=== PATIENT | female | born 1955 | race Caucasian/White ===

== ENCOUNTER 2016-10-28 17:55 | Inpatient (IN) | payer MEDICARE, OTHER ==
[~2016-10-28] VITALS: Ht 167.6 cm; Wt 98.8 kg
[~2016-10-28 17:55] MED LIST: AMLO10TA2 PO; ATOR20TA15 PO; BUME2TAB PO; CANA100T PO; CLON.1 PO; CLON1TAB PO; GLIP5TAB8 PO; LISI40TA PO; Spironolactone PO
[2016-10-28 18:30] VITALS: BP 125/66; PULSE 80; RESP 16; TEMP 97.5; O2SAT 96
--- NOTE | 2016-10-28 18:36 | PD ---
HPI Chief Complaint: General Weakness Time Seen by Provider: 18:13 Travel History International Travel<30 days: No Contact w/Intl Traveler<30days: No Traveled to known affect area: No History of Present Illness HPI This 60-year-old female says she had a stroke 5 weeks ago. Tonight she was incontinent of stool. She she had a fall last . He was incontinent last week also. When she had her stroke was her left side was affected. She had a 2x3 centimeter hemorrhagic infarct at the right basal ganglia. Was thought to be secondary to hypertension. She does have a history of diabetes. She said she's been feeling very weak at home. She walks with a walker. This was her second stroke that she had 5 weeks ago. Daughter says that a week ago she fell and was on the floor for some time until we were able to break into the department. She refused to go to the hospital this time. Daughter says she has not been eating well and she is having generalized weakness PFSH Past Medical History Bipolar Disorder: Yes Anxiety: Yes Depression: Yes Cancer: No Cardiovascular Problems: Yes (HTN) High Cholesterol: Yes Diabetes: Yes Diminished Hearing: No Genitourinary: Yes Hypertension: Yes Immune Disorder: No Musculoskeletal: Yes Neurologic: Yes Psychiatric: Yes Reproductive: No Respiratory: No Renal Failure: Yes Past Surgical History Appendectomy: Yes Cholecystectomy: Yes Hysterectomy: Yes Social History Alcohol Use: No Tobacco Use: No Substance Use: No Allergies-Medications (Allergen,Severity, Reaction): Coded Allergies: Latex (Verified Allergy, Unknown, RASH, 10/28/16) Reported Meds & Prescriptions Reported Meds & Active Scripts Active Reported Clonidine 168 HR Patch (Clonidine HCl) 0.2 Mg/24 Hr Patch 1 Patch T-DERMAL Q7D Spironolactone 25 Mg Tab 12.5 Mg PO DAILY PRN Metformin ER (Metformin HCl) 1,000 Mg Almaz 1,000 Mg PO DAILY With evening meal Amlodipine (Amlodipine Besylate) 10 Mg Tab 10 Mg PO DAILY Glipizide 5 Mg Tab 5 Mg PO BID Take 30 minutes before a meal Clonazepam 1 Mg Tab 1 Mg PO TID Lisinopril 40 Mg Tab 40 Mg PO HS Bumetanide 2 Mg Tab 1 Mg PO DAILY Atorvastatin (Atorvastatin Calcium) 20 Mg Tab 20 Mg PO HS Review of Systems General / Constitutional: No: Fever, Chills Eyes: No: Diploplia HENT: No: Headaches Cardiovascular: No: Chest Pain or Discomfort, Palpitations Respiratory: No: Cough, Shortness of Breath Gastrointestinal: Positive: Loss of Appetite, No: Nausea, Vomiting Genitourinary: No: Urgency, Frequency Musculoskeletal: No: Myalgias, Arthralgias Neurologic: No: Weakness Endocrine: No: Heat Intolerance, Cold Intolerance Hematologic/Lymphatic: No: Easy Bruising Physical Exam Narrative GENERAL: Well-developed female SKIN: Warm and dry. She does have an erythematous excoriated rash between her legs and under her breasts. HEAD: Atraumatic. Normocephalic. EYES: Pupils equal and round. No scleral icterus. No injection or drainage. ENT: No nasal bleeding or discharge. Mucous membranes pink and moist. NECK: Trachea midline. No JVD. CARDIOVASCULAR: Regular rate and rhythm. No murmur appreciated. RESPIRATORY: No accessory muscle use. Clear to auscultation. Breath sounds equal bilaterally. GASTROINTESTINAL: Abdomen soft, non-tender, nondistended. Hepatic and splenic margins not palpable. MUSCULOSKELETAL: No obvious deformities. No clubbing. No cyanosis. No edema. NEUROLOGICAL: Awake and alert. No obvious cranial nerve deficits. She does have 4 over 5 weakness of the left arm and left leg. Clear PSYCHIATRIC: Appropriate mood and affect; insight and judgment normal. Data Data Last Documented VS Vital Signs Date Time Temp Pulse Resp B/P Pulse Ox O2 Delivery O2 Flow Rate FiO2 10/28/16 18:55 78 16 96 Room Air 10/28/16 18:30 97.5 125/66 Orders Complete Blood Count With Diff (10/28/16 18:13) Basic Metabolic Panel (Bmp) (10/28/16 18:13) Urinalysis - C+S If Indicated (10/28/16 18:13) Ct Brain W/O Iv Contrast(Rout) (10/28/16 18:51) Sodium Chlor 0.9% 1000 Ml Inj (Ns 1000 M (10/28/16 20:00) Labs Laboratory Tests Test 10/28/16 18:45 White Blood Count 16.7 TH/MM3 Red Blood Count 4.37 MIL/MM3 Hemoglobin 12.5 GM/DL Hematocrit 37.4 % Mean Corpuscular Volume 85.6 FL Mean Corpuscular Hemoglobin 28.5 PG Mean Corpuscular Hemoglobin 33.3 % Concent Red Cell Distribution Width 13.1 % Platelet Count 355 TH/MM3 Mean Platelet Volume 9.3 FL Neutrophils (%) (Auto) 84.2 % Lymphocytes (%) (Auto) 6.9 % Monocytes (%) (Auto) 5.6 % Eosinophils (%) (Auto) 0.1 % Basophils (%) (Auto) 3.2 % Neutrophils # (Auto) 14.1 TH/MM3 Lymphocytes # (Auto) 1.2 TH/MM3 Monocytes # (Auto) 0.9 TH/MM3 Eosinophils # (Auto) 0.0 TH/MM3 Basophils # (Auto) 0.5 TH/MM3 CBC Comment AUTO DIFF Differential Comment AUTO DIFF CONFIRMED Sodium Level 137 MEQ/L Potassium Level 4.8 MEQ/L Chloride Level 104 MEQ/L Carbon Dioxide Level 19.4 MEQ/L Anion Gap 14 MEQ/L Blood Urea Nitrogen 58 MG/DL Creatinine 3.40 MG/DL Estimat Glomerular Filtration 14 ML/MIN Rate Random Glucose 93 MG/DL Calcium Level 9.4 MG/DL MDM Medical Decision Making Medical Screen Exam Complete: Yes Emergency Medical Condition: Yes Medical Record Reviewed: Yes Differential Diagnosis Differential includes deconditioning, electrolyte imbalance, dehydration Narrative Course CT scan shows previously noted right basal ganglia infarct, otherwise negative. Of note her BUNs 58 with creatinine of 3.4. Her baseline creatinine is about 1.5. Depression in his dehydration, acute kidney injury. Diagnosis Primary Impression: Dehydration Additional Impression: Acute kidney injury Sunny Ochoa MD Oct 28, 2016 18:36
[2016-10-28] MEDS ORDERED: SPIR25TA PO (18:58)
[2016-10-28] MEDS ORDERED: METF-382 PO (18:58)
[2016-10-28] MEDS ORDERED: CLON0.2D T-DERMAL (19:00)
[2016-10-28 19:15] LABS: AUTOMATED NEUTROPHIL # 14.1 TH/MM3 (1.8-7.7); BASOPHIL # 0.5 TH/MM3 (0-0.2); BASOPHIL % 3.2 % (0.0-2.0); EOSINOPHIL % 0.1 % (0.0-4.0); HEMATOCRIT 37.4 % (35.0-46.0); LYMPH % 6.9 % (9.0-44.0); LYMPHOCYTE # 1.2 TH/MM3 (1.0-4.8); MEAN CELL VOLUME 85.6 FL (80.0-100.0); MEAN CORPUSCULAR HEMOGLOBIN 28.5 PG (27.0-34.0); MEAN CORPUSCULAR HGB CONC 33.3 % (32.0-36.0); MONO % 5.6 % (0.0-8.0); NEUT % 84.2 % (16.0-70.0); PLATELET COUNT 355 TH/MM3 (150-450); RED BLOOD COUNT 4.37 MIL/MM3 (4.00-5.30); RED CELL DISTRIBUTION WIDTH 13.1 % (11.6-17.2); WHITE BLOOD COUNT 16.7 TH/MM3 (4.0-11.0)
[2016-10-28 19:24] LABS: POTASSIUM 4.8 MEQ/L (3.5-5.1)
[2016-10-28 19:25] LABS: HEMO FLAGS AUTO DIFF
[2016-10-28 19:27] LABS: BICARBONATE 19.4 MEQ/L (21.0-32.0)
--- NOTE | 2016-10-28 19:41 | RADHPO ---
EXAM DATE/TIME: 10/28/2016 19:22 [facility] COMPARISON: CT BRAIN W/O CONTRAST, July 31, 2016, 8:48. MRA BRAIN W/O CONTRAST, July 29, 2016, 12:26. M RI BRAIN W/O CONTRAST, July 29, 2016, 12:26. INDICATIONS : Weakness. RADIATION DOSE: 66.48 CTDIvol (mGy) MEDICAL HISTORY : Cerebrovascular disease. Cardiovascular disease SURGICAL HISTORY : None. ENCOUNTER: Initial ACUITY: 1 day PAIN SCALE: 2/10 LOCATION: cranial TECHNIQUE: Multiple contiguous axial images were obtained of the head. Using automated exposure control and adj ustment of the mA and/or kV according to patient size, radiation dose was kept as low as reasonably a chievable to obtain optimal diagnostic quality images. FINDINGS: CEREBRUM: The ventricles are normal for age. No evidence of midline shift, mass lesion, hemorrhage or acute in farction. No extra-axial fluid collections are seen. The basal ganglia infarct on the right has evol clint to chronic. POSTERIOR FOSSA: The cerebellum and brainstem are intact. The 4th ventricle is midline. The cerebellopontine angle i s unremarkable. EXTRACRANIAL: The visualized portion of the orbits is intact. SKULL: The calvaria is intact. No evidence of skull fracture. CONCLUSION: No acute intracranial abnormality. Old infarct right basal ganglia. Holden Vargas MD on October 28, 2016 at 19:39 Board Certified Radiologist. This report was verified electronically.
[2016-10-28 19:51] LABS: SCAN/DIFF AUTO DIFF CONFIRMED
[2016-10-28] MEDS ORDERED: SODIUM CHLOR 0.9% 1000 ML INJ 1,000 ML IV SCH (20:00)
[2016-10-28 20:50] VITALS: BP 123/85; PULSE 81; RESP 16; O2SAT 95
[2016-10-28] MEDS: SODIUM CHLORIDE 0.9% FLUSH 5 ML FLUSH FLUSH SCH (21:00)
[2016-10-28] MEDS ORDERED: NALOXONE HCL 0.4 MG/ML AMP IV PRN (21:00)
[2016-10-28] MEDS ORDERED: SODIUM CHLORIDE 0.9% FLUSH 5 ML FLUSH FLUSH PRN (21:00)
[2016-10-28] MEDS: SODIUM CHLOR 0.9% 1000 ML INJ 1,000 ML IV SCH (21:26)
--- NOTE | 2016-10-28 21:39 | RADHPO ---
EXAM DATE/TIME: 10/28/2016 21:28 [facility] COMPARISON: CHEST SINGLE AP, July 28, 2016, 22:54. INDICATIONS : Weakness. MEDICAL HISTORY : Cerebrovascular disease. Cardiovascular disease. SURGICAL HISTORY : None. ENCOUNTER: Initial ACUITY: 1 day PAIN SCORE: 0/10 LOCATION: Bilateral chest FINDINGS: A single view of the chest demonstrates the lungs to be symmetrically aerated without evidence of mas s, infiltrate or effusion. The cardiomediastinal contours are unremarkable. Osseous structures are intact. CONCLUSION: No evidence of acute cardiopulmonary disease. Holden Vargas MD on October 28, 2016 at 21:38 Board Certified Radiologist. This report was verified electronically.
[2016-10-28 22:00] VITALS: BP 104/58; PULSE 83; RESP 16; O2SAT 98
[2016-10-28 23:44] VITALS: PULSE 83
[2016-10-29] VITALS (7 sets, daily range): BP systolic 108–147; BP diastolic 68–78; PULSE 68–83; RESP 16–20; TEMP 97.5–98.7; O2SAT 95–100
[2016-10-29] MEDS: SODIUM CHLOR 0.9% 1000 ML INJ 1,000 ML IV SCH ×2 (06:27→16:30)
[2016-10-29 06:57] LABS: POTASSIUM 4.1 MEQ/L (3.5-5.1)
[2016-10-29 07:00] LABS: AUTOMATED NEUTROPHIL # 7.8 TH/MM3 (1.8-7.7); BASOPHIL % 0.4 % (0.0-2.0); EOSINOPHIL # 0.1 TH/MM3 (0-0.4); EOSINOPHIL % 0.8 % (0.0-4.0); HEMATOCRIT 30.9 % (35.0-46.0); LYMPH % 20.2 % (9.0-44.0); LYMPHOCYTE # 2.2 TH/MM3 (1.0-4.8); MEAN CELL VOLUME 85.4 FL (80.0-100.0); MEAN CORPUSCULAR HEMOGLOBIN 29.2 PG (27.0-34.0); MEAN CORPUSCULAR HGB CONC 34.2 % (32.0-36.0); MONO % 8.1 % (0.0-8.0); NEUT % 70.5 % (16.0-70.0); PLATELET COUNT 305 TH/MM3 (150-450); RED BLOOD COUNT 3.61 MIL/MM3 (4.00-5.30); RED CELL DISTRIBUTION WIDTH 13.4 % (11.6-17.2); WHITE BLOOD COUNT 10.9 TH/MM3 (4.0-11.0)
[2016-10-29 07:02] LABS: HEMO FLAGS DIFF FINAL
[2016-10-29 08:05] LABS: BICARBONATE 18.2 MEQ/L (21.0-32.0)
[2016-10-29] MEDS ORDERED: GLUCAGON 1 MG/ML VIAL OTHER PRN (09:15)
[2016-10-29] MEDS ORDERED: DEXTROSE 50% IN WATER 50 ML VIAL(D50) IV PUSH PRN (09:15)
--- NOTE | 2016-10-29 09:20 | HHI.HP ---
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 She has had 2 episodes of stool incontinence, one last night and one a week ago, due to inability to make it to the bathroom on time. She's been home approximately 5 weeks following a 2 month stay in rehabilitation subsequent to her hemorrhagic CVA in July. 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 She lives alone and attributes her recurrent falls due to being disoriented and unable to see her home. She states she's had worsening memory problems over the past several weeks as well as progressive weakness. She no longer feels that she is safe at home alone. Daughter also reports in the ED that the patient has not been eating well. In the ED, CT scan showed previously noted right basal ganglia infarct otherwise negative. She is known to have a history of chronic kidney disease with a baseline creatinine of 1.5 but at the time of her presentation, her creatinine was 3.4 and BUN was 58. Review of Systems Constitutional: DENIES: Diaphoretic episodes, Fever, Chills, Dizziness Endocrine: DENIES: Polydipsia, Polyuria Eyes: DENIES: Blurred vision, Diplopia, Double Vision Ears, nose, mouth, throat: DENIES: Nasal discharge, Throat pain, Running Nose Respiratory: DENIES: Cough, Sputum production, Shortness of breath Cardiovascular: DENIES: Chest pain, Palpitations, Syncope, Dyspnea on Exertion , Lower Extremity Edema Gastrointestinal: DENIES: Abdominal pain, Bloody stools, Constipation, Diarrhea , Nausea, Vomiting Genitourinary: DENIES: Urinary incontinence, Hematuria, Dysuria Musculoskeletal: DENIES: Joint pain, Muscle aches, Back pain Integumentary: DENIES: Pruritus, Rash Hematologic/lymphatic: DENIES: Lymphadenopathy Immunologic/allergic: DENIES: Urticaria Neurologic: COMPLAINS OF: Poor Balance, DENIES: Headache, Paresthesias, Seizures Psychiatric: COMPLAINS OF: Anxiety, Depression, DENIES: Confusion, Mood changes Past Family Social History Past Medical History Hypertension Recurrent CVA with residual left-sided weakness, history of 3 x 2 cm hemorrhagic CVA 08/09 Diabetes mellitus Bipolar disorder Depression Anxiety dyslipidemia Blind Past Surgical History Appendectomy Hysterectomy Cholecystectomy Reported Medications Clonidine 168 HR Patch (Clonidine HCl) 0.2 Mg/24 Hr Patch 1 Patch T-DERMAL Q7D Spironolactone 25 Mg Tab 12.5 Mg PO DAILY PRN Metformin ER (Metformin HCl) 1,000 Mg Almaz 1,000 Mg PO DAILY With evening meal Amlodipine (Amlodipine Besylate) 10 Mg Tab 10 Mg PO DAILY Glipizide 5 Mg Tab 5 Mg PO BID Take 30 minutes before a meal Clonazepam 1 Mg Tab 1 Mg PO TID Lisinopril 40 Mg Tab 40 Mg PO HS Bumetanide 2 Mg Tab 1 Mg PO DAILY Atorvastatin (Atorvastatin Calcium) 20 Mg Tab 20 Mg PO HS Allergies: Coded Allergies: Latex (Verified Allergy, Unknown, RASH, 10/28/16) Active Ordered Medications Current Medications Medications (Trade) Dose Ordered Sig/Eugenie Route Start Time Stop Time Status Last Admin (NS 1000 ml Inj) 1,000 ml @ 100 mls/hr Q10H IV 10/28/16 20:54 10/29/16 06:27 (NS Flush) 2 ml UNSCH PRN FLUSH 10/28/16 21:00 (NS Flush) 2 ml BID FLUSH 10/28/16 21:00 (Narcan Inj) 0.4 mg UNSCH PRN IV 10/28/16 21:00 (Pneumovax-23 Inj) 25 mcg ONCE ONCE IM 10/29/16 10:00 10/29/16 10:01 Family History Significant for mother with a history of heart disease Social History Patient has a history of tobacco use since high school, she previously smoked 1 pack per day but quit about 8 years ago. Rare alcohol use Denies any illicit drug use Physical Exam Vital Signs Vital Signs Date Time Temp Pulse Resp B/P Pulse Ox O2 Delivery O2 Flow Rate FiO2 10/29/16 04:00 97.9 80 20 147/75 98 10/29/16 00:00 97.9 81 20 142/74 100 10/28/16 23:44 83 10/28/16 22:00 83 16 104/58 98 Room Air 10/28/16 20:50 81 16 123/85 95 Room Air 10/28/16 18:55 78 16 96 Room Air 10/28/16 18:30 97.5 80 16 125/66 96 10/28/16 18:25 80 16 96 Room Air Physical Exam GENERAL: This is a well-nourished, well-developed patient, in no apparent distress. SKIN: No rashes, ecchymoses. HEAD: Atraumatic. Normocephalic. No temporal or scalp tenderness. Erythematous , macerated plagues noted along intertriginous area of breasts, axilla and groin. EYES: Pupils equal round and reactive. Extraocular motions intact. No scleral icterus. No injection or drainage. ENT: Nose without bleeding, purulent drainage or septal hematoma. Throat without erythema, tonsillar hypertrophy or exudate. Uvula midline. Airway patent. NECK: Trachea midline. No JVD or lymphadenopathy. Supple, nontender, no meningeal signs. CARDIOVASCULAR: Regular rate and rhythm without murmurs, gallops, or rubs. RESPIRATORY: Clear to auscultation. Breath sounds equal bilaterally. No wheezes , rales, or rhonchi. GASTROINTESTINAL: Abdomen soft, non-tender, nondistended. No hepato-splenomegaly , or palpable masses. No guarding. MUSCULOSKELETAL: Extremities without clubbing, cyanosis, or edema. No joint tenderness, effusion, or edema noted. No calf tenderness. Negative Homans sign bilaterally. NEUROLOGICAL: Awake and alert. Cranial nerves II through XII intact. Motor and sensory grossly within normal limits. Five out of 5 muscle strength in all muscle groups. Normal speech. Laboratory Laboratory Tests Test 10/28/16 10/29/16 18:45 06:15 White Blood Count 16.7 10.9 Red Blood Count 4.37 3.61 Hemoglobin 12.5 10.5 Hematocrit 37.4 30.9 Mean Corpuscular Volume 85.6 85.4 Mean Corpuscular Hemoglobin 28.5 29.2 Mean Corpuscular Hemoglobin 33.3 34.2 Concent Red Cell Distribution Width 13.1 13.4 Platelet Count 355 305 Mean Platelet Volume 9.3 9.1 Neutrophils (%) (Auto) 84.2 70.5 Lymphocytes (%) (Auto) 6.9 20.2 Monocytes (%) (Auto) 5.6 8.1 Eosinophils (%) (Auto) 0.1 0.8 Basophils (%) (Auto) 3.2 0.4 Neutrophils # (Auto) 14.1 7.8 Lymphocytes # (Auto) 1.2 2.2 Monocytes # (Auto) 0.9 0.9 Eosinophils # (Auto) 0.0 0.1 Basophils # (Auto) 0.5 0.0 CBC Comment AUTO DIFF DIFF FINAL Differential Comment AUTO DIFF CONFIRMED Sodium Level 137 142 Potassium Level 4.8 4.1 Chloride Level 104 110 Carbon Dioxide Level 19.4 18.2 Anion Gap 14 14 Blood Urea Nitrogen 58 52 Creatinine 3.40 2.60 Estimat Glomerular Filtration 14 19 Rate Random Glucose 93 87 Calcium Level 9.4 8.5 Result Diagram: 10/29/1661410/29/16614 Assessment and Plan Assessment and Plan 60-year-old female with a past medical history of recurrent CVAs with initial stroke 2 years ago with residual left-sided weakness and visual impairment and more recently history of a 3 x 2 cm hemorrhagic CVA this past July, known medication noncompliance, hypertension, dyslipidemia, bipolar disorder and anxiety/depression presents to [facility] ED with complaints of progressive inability to care for herself, recurrent falls at home and progressive weakness. Dehydration - Patient started on IV fluid resuscitation. Will monitor for signs of fluid overload. Swallow evaluation ordered. RICARDO on CKD - Likely secondary to the above. Patient's baseline creatinine is 1.5. Patient 's creatinine started improving, 3.40 -> 2.60. Patient is on spironolactone and Bumex at home which is currently on hold. Also will continue to hold patient's home metformin and TASHA inhibitor. Will continue to hold these medications presently. Avoid nephrotoxic agents. Hypertension - Continue to hold patient's lisinopril as stated above. Fairly good control presently with a BP of 147/75. Will resume home amlodipine. Continue to monitor patient's blood pressure and adjust medications as indicated. History of recurrent CVA with residual left-sided weakness - Patient lives alone at home and due to her worsening visual impairment is suffering recurrent falls. Appears she has unsafe home environment. Case management consulted to assist with discharge planning, possible d/c to rehab/ SNF. Begin participation with physical therapy. Patient is a fall risk. Diabetes - Obtain A1c level. Blood glucose monitoring. Insulin sliding scale. Hold home metformin at this time. Diabetic heart healthy diet. Candidal infection - Apply Nystatin powder to skin folds BID. Monitor for response. Anxiety/depression/bipolar disorder - Resume patient's home medications Dyslipidemia - Patient's home atorvastatin restarted Written by Bruna Hung PA-C acting as scribe for Dr. Hines on 10/29/16 at 15:00. Bruna Hung Oct 29, 2016 09:20 Cassidy Hines MD Oct 29, 2016 15:29
[2016-10-29] MEDS: SODIUM CHLORIDE 0.9% FLUSH 5 ML FLUSH FLUSH SCH ×2 (09:48→20:01)
[2016-10-29] MEDS ORDERED: PNEUMOCOCCAL POLYVALENT INJ 25 MCG/0.5 ML SYR IM ONE (10:00)
[2016-10-29] MEDS: NYSTATIN 100,000 U/GM PWD 15 GM BTL TOPICAL SCH ×2 (12:00→21:05)
[2016-10-29 13:54] LABS: HEMOGLOBIN A1a 1.2 %; HEMOGLOBIN A1b 0.8 %; HEMOGLOBIN F 1.5 %; HEMOGLOBIN P3 5.6 %
[2016-10-29] MEDS: glipiZIDE 5 MG TAB PO SCH (16:26)
[2016-10-29] MEDS: INSULIN ASPART SUPPLEMENTAL SCALE SQ SCH ×2 (16:27→21:05)
[2016-10-29 17:46] LABS: BLOOD, URINE NEG (NEG); GLUCOSE,URINE 100 mg/dL (NEG); KETONE, URINE NEG (NEG); NITRITE,URINE NEG (NEG); PH, URINE 5.5 (5.0-8.5)
[2016-10-29 17:52] LABS: URINE COLOR YELLOW (YELLW/STRAW)
[2016-10-29 17:53] LABS: COMMENT (UR) CULT NOT INDICATED; CULTURE IF INDICATED CULT NOT INDICATED; SQUAMOUS EPITHELIAL CELL URINE 0-5 /hpf (0-5)
[2016-10-29] MEDS: FAMOTIDINE 20 MG TAB PO SCH (21:04)
[2016-10-29] MEDS: ATORVASTATIN 20 MG TAB PO SCH (21:04)
[2016-10-30] VITALS: BP 144/76; PULSE 72; RESP 19; TEMP 97.1; O2SAT 98
[2016-10-30] MEDS: SODIUM CHLOR 0.9% 1000 ML INJ 1,000 ML IV SCH ×3 (02:36→22:54)
[2016-10-30 04:00] VITALS: BP 143/83; PULSE 70; RESP 20; TEMP 97.1; O2SAT 98
[2016-10-30 06:31] LABS: AUTOMATED NEUTROPHIL # 6.4 TH/MM3 (1.8-7.7); BASOPHIL % 0.5 % (0.0-2.0); EOSINOPHIL # 0.1 TH/MM3 (0-0.4); EOSINOPHIL % 1.1 % (0.0-4.0); HEMATOCRIT 31.4 % (35.0-46.0); HEMO FLAGS DIFF FINAL; LYMPH % 23.4 % (9.0-44.0); LYMPHOCYTE # 2.2 TH/MM3 (1.0-4.8); MEAN CELL VOLUME 85.7 FL (80.0-100.0); MEAN CORPUSCULAR HEMOGLOBIN 27.9 PG (27.0-34.0); MEAN CORPUSCULAR HGB CONC 32.6 % (32.0-36.0); MONO % 6.7 % (0.0-8.0); NEUT % 68.3 % (16.0-70.0); PLATELET COUNT 285 TH/MM3 (150-450); RED BLOOD COUNT 3.66 MIL/MM3 (4.00-5.30); RED CELL DISTRIBUTION WIDTH 13.2 % (11.6-17.2); WHITE BLOOD COUNT 9.3 TH/MM3 (4.0-11.0)
[2016-10-30 06:42] LABS: POTASSIUM 4.4 MEQ/L (3.5-5.1)
[2016-10-30] MEDS: glipiZIDE 5 MG TAB PO SCH ×2 (06:45→16:50)
[2016-10-30 06:46] LABS: BICARBONATE 19.8 MEQ/L (21.0-32.0)
[2016-10-30] MEDS: INSULIN ASPART SUPPLEMENTAL SCALE SQ SCH ×4 (07:00→21:00)
[2016-10-30 08:00] VITALS: BP 144/79; PULSE 68; RESP 20; TEMP 97.7; O2SAT 97
[2016-10-30] MEDS: SODIUM CHLORIDE 0.9% FLUSH 5 ML FLUSH FLUSH SCH ×2 (09:00→20:00)
[2016-10-30] MEDS: NYSTATIN 100,000 U/GM PWD 15 GM BTL TOPICAL SCH ×2 (09:01→21:14)
[2016-10-30] MEDS: FAMOTIDINE 20 MG TAB PO SCH ×2 (09:01→21:10)
--- NOTE | 2016-10-30 10:18 | HHI.PR ---
Subjective Remarks Patient is feeling well and denies pain. She did not sleep well. Objective Vitals Vital Signs Date Time Temp Pulse Resp B/P Pulse Ox O2 Delivery O2 Flow Rate FiO2 10/30/16 08:00 97.7 68 20 144/79 97 10/30/16 04:00 97.1 70 20 143/83 98 10/30/16 00:00 97.1 72 19 144/76 98 10/29/16 20:00 97.5 68 19 142/77 99 10/29/16 20:00 71 10/29/16 16:00 98.0 80 16 108/78 95 10/29/16 12:00 98.7 74 16 135/68 95 I/O 10/29/16 10/29/16 10/29/16 10/30/16 10/30/16 10/30/16 07:00 15:00 23:00 07:00 15:00 23:00 Intake Total 1892 ml 240 ml 1040 ml Output Total 0 ml Balance 1892 ml 240 ml 1040 ml Intake Oral 240 ml 240 ml IV Total 1892 ml 800 ml Output Urine Total 0 ml # Voids 2 2 3 # Bowel Movements 0 0 Result Diagram: 10/30/16 0610/30/16 06 Objective Remarks GENERAL: Well-nourished, well-developed patient. SKIN: Warm and dry. HEAD: Normocephalic. EYES: No scleral icterus. No injection or drainage. NECK: Supple, trachea midline. No JVD or lymphadenopathy. CARDIOVASCULAR: Regular rate and rhythm without murmurs, gallops, or rubs. RESPIRATORY: Breath sounds equal bilaterally. No accessory muscle use. GASTROINTESTINAL: Abdomen soft, non-tender, nondistended. EXTREMITIES: No cyanosis, or edema. NEUROLOGICAL: Awake, alert, and oriented x 3. A/P Assessment and Plan 60-year-old female with a past medical history of recurrent CVAs with initial stroke 2 years ago with residual left-sided weakness and visual impairment and more recently history of a 3 x 2 cm hemorrhagic CVA this past July, known medication noncompliance, hypertension, dyslipidemia, bipolar disorder and anxiety/depression presents to [facility] ED with complaints of progressive inability to care for herself, recurrent falls at home and progressive weakness. RICARDO on CKD - Prerenal secondary to dehydration. Likely secondary to the above. Patient's baseline creatinine is 1.5. Patient's creatinine started improving, 3.40 -> 2.60->2. Patient is on spironolactone and Bumex at home which is currently on hold. Also will continue to hold patient's home metformin and TASHA inhibitor. Will continue to hold these medications presently. Avoid nephrotoxic agents. Continue IV fluids for more day. Hypertension - Continue to hold patient's lisinopril as stated above. Fairly good control presently with a BP of 147/75. Will resume home amlodipine. Continue to monitor patient's blood pressure and adjust medications as indicated. History of recurrent CVA with residual left-sided weakness - Patient lives alone at home and due to her worsening visual impairment is suffering recurrent falls. Appears she has unsafe home environment. Case management consulted to assist with discharge planning, possible d/c to rehab/ SNF. Begin participation with physical therapy. Patient is a fall risk. Diabetes -A1c level 5.9. Blood glucose monitoring. Insulin sliding scale. Hold home metformin at this time. Diabetic heart healthy diet. Candidal infection - Apply Nystatin powder to skin folds BID. Monitor for response. Anxiety/depression/bipolar disorder - Resume patient's home medications Dyslipidemia - Patient's home atorvastatin restarted -DVT prophylaxis with SCDs. Cassidy Hines MD Oct 30, 2016 10:18
[2016-10-30 12:00] VITALS: BP 140/74; PULSE 72; RESP 18; TEMP 98.2; O2SAT 98
[2016-10-30 16:00] VITALS: BP 139/71; PULSE 68; RESP 18; TEMP 98.1; O2SAT 100
[2016-10-30 20:00] VITALS: BP 135/71; PULSE 73; PULSE 78; RESP 20; TEMP 97.3; O2SAT 99
[2016-10-30] MEDS: ATORVASTATIN 20 MG TAB PO SCH (21:11)
[2016-10-31] VITALS: BP 149/76; PULSE 63; RESP 20; TEMP 96.9; O2SAT 98
[2016-10-31 04:00] VITALS: BP 147/76; PULSE 74; RESP 20; TEMP 96.9; O2SAT 97
[2016-10-31 06:39] LABS: POTASSIUM 4.1 MEQ/L (3.5-5.1)
[2016-10-31 06:44] LABS: BICARBONATE 20.7 MEQ/L (21.0-32.0)
[2016-10-31] MEDS: INSULIN ASPART SUPPLEMENTAL SCALE SQ SCH ×4 (06:47→21:00)
[2016-10-31] MEDS: glipiZIDE 5 MG TAB PO SCH ×2 (06:52→17:03)
[2016-10-31 08:00] VITALS: BP 159/76; PULSE 74; RESP 18; TEMP 98.7; O2SAT 99
[2016-10-31] MEDS: FAMOTIDINE 20 MG TAB PO SCH ×2 (08:43→21:29)
[2016-10-31] MEDS: SODIUM CHLOR 0.9% 1000 ML INJ 1,000 ML IV SCH (08:54)
[2016-10-31] MEDS: SODIUM CHLORIDE 0.9% FLUSH 5 ML FLUSH FLUSH SCH ×2 (09:00→21:27)
[2016-10-31] MEDS: NYSTATIN 100,000 U/GM PWD 15 GM BTL TOPICAL SCH ×2 (09:00→21:31)
--- NOTE | 2016-10-31 11:11 | HHI.PR ---
Subjective Remarks Follow-up on patient with a history of recurrent CVA, admitted with inability to care for herself, recurrent falls at home and progressive weakness. Patient was only able to sleep until 4:00 this morning. Otherwise she has no acute medical complaints including no issues with chest pain, shortness of breath or abdominal pain. Objective Vitals Vital Signs Date Time Temp Pulse Resp B/P Pulse Ox O2 Delivery O2 Flow Rate FiO2 10/31/16 08:00 98.7 74 18 159/76 99 10/31/16 04:00 96.9 74 20 147/76 97 10/31/16 00:00 96.9 63 20 149/76 98 10/30/16 20:00 97.3 73 20 135/71 99 10/30/16 20:00 78 10/30/16 16:00 98.1 68 18 139/71 100 10/30/16 12:00 98.2 72 18 140/74 98 I/O 10/30/16 10/30/16 10/30/16 10/31/16 10/31/16 10/31/16 07:00 15:00 23:00 07:00 15:00 23:00 Intake Total 550 ml 870 ml 60 ml Balance 550 ml 870 ml 60 ml Intake Oral 550 ml 870 ml 60 ml # Voids 3 2 1 3 # Bowel Movements 0 0 0 0 Result Diagram: 10/30/16 0605 10/31/16 0612 Imaging Last [address] 10/28/16 1851 Signed Impressions: Service Date/Time: Friday, October 28, 2016 19:22 - CONCLUSION: No acute intracranial abnormality. Old infarct right basal ganglia. Holden Vargas MD Objective Remarks GENERAL: Well-nourished, well-developed patient in [facility]. Patient is blind. A& Ox3. SKIN: Warm and dry. No rash. HEAD: Normocephalic. Atraumatic. EYES: Pupils equal and round. No scleral icterus. No injection or drainage. ENT: No nasal bleeding or discharge. Mucous membranes pink and moist. NECK: Supple. Trachea midline. CARDIOVASCULAR: Regular rate and rhythm. S1, S2 noted. No murmur appreciated. RESPIRATORY: No accessory muscle use. Clear to auscultation. Breath sounds equal bilaterally. GASTROINTESTINAL: Abdomen soft, non-tender, nondistended. Normoactive bowel sounds x4. MUSCULOSKELETAL: No obvious deformities. Extremities without clubbing, cyanosis , or edema. NEUROLOGICAL: Awake and alert. No obvious cranial nerve deficits. Motor grossly within normal limits. 5/5 muscle strength in bilateral upper and lower extremities. Normal speech. PSYCHIATRIC: Appropriate mood and affect; insight and judgment normal. Medications and IVs Current Medications Medications (Trade) Dose Ordered Sig/Eugenie Route Start Time Stop Time Status Last Admin (NS Flush) 2 ml UNSCH PRN FLUSH 10/28/16 21:00 (NS Flush) 2 ml BID FLUSH 10/28/16 21:00 10/31/16 09:00 (Narcan Inj) 0.4 mg UNSCH PRN IV 10/28/16 21:00 (Lipitor) 20 mg HS PO 10/29/16 21:00 10/30/16 21:11 (Norvasc) 10 mg DAILY PO 10/29/16 09:15 10/31/16 08:43 (D50w (Vial) Inj) 25 ml UNSCH PRN IV PUSH 10/29/16 09:15 (Glucagon Inj) 1 mg UNSCH PRN OTHER 10/29/16 09:15 (Mycostatin Powder) 1 applic Q12HR TOPICAL 10/29/16 12:00 10/30/16 21:14 (Glucotrol) 5 mg BIDAC PO 10/29/16 16:00 10/31/16 06:52 (Pepcid) 10 mg BID PO 10/31/16 21:00 A/P Assessment and Plan 60-year-old female with a past medical history of recurrent CVAs with initial stroke 2 years ago with residual left-sided weakness and visual impairment and more recently history of a 3 x 2 cm hemorrhagic CVA this past July, known medication noncompliance, hypertension, dyslipidemia, bipolar disorder and anxiety/depression presents to [facility] ED with complaints of progressive inability to care for herself, recurrent falls at home and progressive weakness. RICARDO on CKD - Prerenal secondary to dehydration. Patient's baseline creatinine is 1.5. Patient's creatinine continues to improve, 3.40 -> 2.60 -> 2 -> 1.60. Patient is on spironolactone and Bumex at home which is currently on hold. Also will continue to hold patient's home metformin. Avoid nephrotoxic agents. DC IV fluids. Hep-Lock IV. Repeat BMP in a.m. I discussed with the patient to not resume metformin or diuretics. Hypertension - Patient's lisinopril held at admission due to RICARDO. Patient continued on home amlodipine. Blood pressure not well controlled at 159/76. We'll resume lisinopril as creatinine near baseline. Continue to monitor patient's blood pressure and adjust medications as indicated. History of recurrent CVA with residual left-sided weakness - Patient lives alone at home and due to her worsening visual impairment is suffering recurrent falls. Appears she has unsafe home environment. Case management consulted to assist with discharge planning, plan for patient to be discharged tomorrow to [facility] & . CM also working on long-term care. Continue participation with physical therapy. Patient is a fall risk. Diabetes -A1c level 5.9. Blood glucose monitoring. Insulin sliding scale. Discontinue metformin. Continue with glipizide. Diabetic heart healthy diet. Candidal infection - Improving - Continue to Apply Nystatin powder to skin folds BID. Monitor for response. Anxiety/depression/bipolar disorder - Continue with patient's home medications Dyslipidemia - Patient's home atorvastatin resumed -DVT prophylaxis with SCDs. Discharge Planning Anticipate discharge to alf facility tomorrow. Attending Statement All or portions of this note were transcribed by paola [[email or web address]]. I, Dr. Cassidy Hines personally performed the history, physical exam, and medical decision making; and confirmed the accuracy of the information in the transcribed note. Authenticated by Dr. Cassidy Hines on 10/31/16 at 13:00. Bruna Hung Oct 31, 2016 11:11 Cassidy iHnes MD Oct 31, 2016 13:00
[2016-10-31 12:00] VITALS: BP 115/64; PULSE 67; RESP 18; TEMP 98.8; O2SAT 99
[2016-10-31] MEDS ORDERED: CLON1TAB PO (13:02)
[2016-10-31 16:00] VITALS: BP 128/72; PULSE 72; RESP 20; TEMP 97.9; O2SAT 98
[2016-10-31 20:00] VITALS: BP 150/73; PULSE 66; RESP 16; TEMP 98; O2SAT 100
[2016-10-31] MEDS ORDERED: LISINOPRIL 20 MG TAB PO SCH (21:00)
[2016-10-31] MEDS: ATORVASTATIN 20 MG TAB PO SCH (21:27)
[2016-11-01] VITALS: BP 151/81; PULSE 63; RESP 18; TEMP 97.9; O2SAT 99
[2016-11-01 04:00] VITALS: BP 172/80; PULSE 72; RESP 16; TEMP 98.1; O2SAT 98
[2016-11-01] MEDS: INSULIN ASPART SUPPLEMENTAL SCALE SQ SCH ×2 (06:08→11:00)
[2016-11-01] MEDS: glipiZIDE 5 MG TAB PO SCH (06:08)
[2016-11-01 07:58] LABS: POTASSIUM 3.9 MEQ/L (3.5-5.1)
[2016-11-01 08:00] VITALS: BP 149/68; PULSE 67; PULSE 97; RESP 18; TEMP 97.7; O2SAT 97
[2016-11-01 08:02] LABS: BICARBONATE 20.4 MEQ/L (21.0-32.0)
[2016-11-01] MEDS: FAMOTIDINE 20 MG TAB PO SCH (08:34)
[2016-11-01] MEDS: NYSTATIN 100,000 U/GM PWD 15 GM BTL TOPICAL SCH (08:35)
[2016-11-01 12:00] VITALS: BP 148/70; PULSE 98; RESP 18; TEMP 98; O2SAT 97
--- NOTE | 2016-11-01 14:20 | HHI.DS ---
Discharge Summary Admission Date Oct 29, 2016 at 10:52 Discharge Date: Nov 01, 2016 Admitting Diagnosis DEHYDRATION, ACUTE KIDNEY INJURY (1) Dehydration ICD Code: E86.0 (2) Acute kidney injury ICD Code: N17.9 Procedures none Brief History - From Admission This is a 60-year-old female with a past medical history of recurrent CVAs with initial stroke 2 years ago with residual left-sided weakness and visual impairment and more recently history of a 3 x 2 cm hemorrhagic CVA this past July, known medication noncompliance, hypertension, dyslipidemia, bipolar disorder and anxiety/depression presents to [facility] ED with complaints of progressive inability to care for herself, recurrent falls at home and progressive weakness for the past week. She has had 2 episodes of stool incontinence, one last night and one a week ago, due to inability to make it to the bathroom on time. She's been home approximately 5 weeks following a 2 month stay in rehabilitation subsequent to her hemorrhagic CVA in July. 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 She lives alone and attributes her recurrent falls due to being disoriented and unable to see her home. She states she's had worsening memory problems over the past several weeks as well as progressive weakness. She no longer feels that she is safe at home alone. Daughter also reports in the ED that the patient has not been eating well. In the ED, CT scan showed previously noted right basal ganglia infarct otherwise negative. She is known to have a history of chronic kidney disease with a baseline creatinine of 1.5 but at the time of her presentation, her creatinine was 3.4 and BUN was 58. CBC/BMP: 10/30/16 0605 11/01/16 0720 Significant Findings Laboratory Tests Test 10/29/16 10/30/16 10/31/16 11/01/16 17:30 06:05 06:12 07:20 Urine Protein 100 mg/dL (NEG-TRACE) Urine Glucose (UA) 100 mg/dL (NEG) Red Blood Count 3.66 MIL/MM3 (4.00-5.30) Hemoglobin 10.2 GM/DL (11.6-15.3) Hematocrit 31.4 % (35.0-46.0) Chloride Level 114 MEQ/L 114 MEQ/L 112 MEQ/L (98-107) (98-107) (98-107) Carbon Dioxide Level 19.8 MEQ/L 20.7 MEQ/L 20.4 MEQ/L (21.0-32.0) (21.0-32.0) (21.0-32.0) Blood Urea Nitrogen 42 MG/DL (7-18) 32 MG/DL (7-18) 30 MG/DL (7-18) Creatinine 2.00 MG/DL 1.60 MG/DL 1.70 MG/DL (0.50-1.00) (0.50-1.00) (0.50-1.00) Estimat Glomerular Filtration 25 ML/MIN (>89) 33 ML/MIN (>89) 31 ML/MIN (>89) Rate Calcium Level 8.4 MG/DL 8.4 MG/DL 8.3 MG/DL (8.5-10.1) (8.5-10.1) (8.5-10.1) Random Glucose 120 MG/DL (74-106) Imaging Last Impressions Head CT 10/28/16 1851 Signed Impressions: Service Date/Time: Friday, October 28, 2016 19:22 - CONCLUSION: No acute intracranial abnormality. Old infarct right basal ganglia. Holden Vargas MD Chest X-Ray 10/28/16 0000 Signed Impressions: Service Date/Time: Friday, October 28, 2016 21:28 - CONCLUSION: No evidence of acute cardiopulmonary disease. Holden Vargas MD PE at Discharge GENERAL: Well-nourished, well-developed patient in [facility]. Patient is blind. A& Ox3. SKIN: Warm and dry. No rash. HEAD: Normocephalic. Atraumatic. EYES: Pupils equal and round. No scleral icterus. No injection or drainage. ENT: No nasal bleeding or discharge. Mucous membranes pink and moist. NECK: Supple. Trachea midline. CARDIOVASCULAR: Regular rate and rhythm. S1, S2 noted. No murmur appreciated. RESPIRATORY: No accessory muscle use. Clear to auscultation. Breath sounds equal bilaterally. GASTROINTESTINAL: Abdomen soft, non-tender, nondistended. Normoactive bowel sounds x4. MUSCULOSKELETAL: No obvious deformities. Extremities without clubbing, cyanosis , or edema. NEUROLOGICAL: Awake and alert. No obvious cranial nerve deficits. Motor grossly within normal limits. 5/5 muscle strength in bilateral upper and lower extremities. Normal speech. PSYCHIATRIC: Appropriate mood and affect; insight and judgment normal. Pt update on day of discharge Patient seen and evaluated today in follow-up for acute dehydration and diabetes. Overall much better. Renal function is back to baseline. Hospital Course This patient was seen and treated for weakness and dehydration which resolved with IV hydration. Blood sugar well. Blood pressure was controlled. Her renal function which was initially noted for acute kidney injury improved. Patient was educated on continued medical management and discharge plans to which she was in agreement Pt Condition on Discharge: Good Discharge Disposition: Discharge to SNF Discharge Time: > 30 minutes Discharge Instructions DIET: Follow Instructions for: Diabetic Diet Speech Therapy-Diet Recommends: Regular Activities you can perform: Regular-No Restrictions Follow up Referrals: SNF/LONGTERM/ with [facility]/LONGTERM/ with [facility] Continued Medications: Amlodipine (Amlodipine) 10 Mg Tab 10 MG PO DAILY Blood Pressure Management #30 Ref 0 TAB Atorvastatin (Atorvastatin) 20 Mg Tab 20 MG PO HS Cholesterol Management #30 Ref 0 TAB Clonazepam (Clonazepam) 1 Mg Tab 1 MG PO TID #90 Ref 0 TAB (This prescription has been renewed) Glipizide (Glipizide) 5 Mg Tab 5 MG PO BID Take 30 minutes before a meal Blood Sugar Management #30 Ref 0 TAB Lisinopril (Lisinopril) 40 Mg Tab 40 MG PO HS Blood Pressure Management #30 Ref 0 TAB Spironolactone (Spironolactone) 25 Mg Tab 12.5 MG PO DAILY PRN edema #15 Ref 0 TAB Discontinued Medications: Bumetanide (Bumetanide) 2 Mg Tab 1 MG PO DAILY Ref 0 TAB Clonidine 168 HR Patch (Clonidine 168 HR Patch) 0.2 Mg/24 Hr Patch 1 PATCH T-DERMAL Q7D Blood Pressure Management #4 Ref 0 PATCH Metformin ER (Metformin ER) 1,000 Mg Almaz 1000 MG PO DAILY With evening meal Blood Sugar Management #30 Ref 0 TAB Bernie Ramirez MD Nov 01, 2016 14:20
== END 2016-11-01 16:40 | DRG 683 ==
LOC: PHED 17:55 → PHEDA 20:52 → INTOOBSV 20:52 → PH3A 23:06 → OBSVTOIN 10-29 10:52
PROVIDERS: ADMIT Hospitalist; ATTEND Hospitalist
DX: N17.9 Acute kidney failure, unspecified (principal); I69.354 Hemiplegia and hemiparesis following cerebral infarction affecting left non-dominant side; E11.22 Type 2 diabetes mellitus with diabetic chronic kidney disease; I12.9 Hypertensive chronic kidney disease with stage 1 through stage 4 chronic kidney disease, or unspecified chronic kidney disease; E86.0 Dehydration; R15.9 Full incontinence of feces; N18.9 Chronic kidney disease, unspecified; F31.9 Bipolar disorder, unspecified; F41.9 Anxiety disorder, unspecified; E78.00 Pure hypercholesterolemia, unspecified; Z79.84 Long term (current) use of oral hypoglycemic drugs; W19.XXXA Unspecified fall, initial encounter; H54.0 Blindness, both eyes; R29.6 Repeated falls; Z91.14 Patient's other noncompliance with medication regimen; E78.5 Hyperlipidemia, unspecified; Z91.040 Latex allergy status; Z87.891 Personal history of nicotine dependence; B37.2 Candidiasis of skin and nail; Z23 Encounter for immunization
CPT/HCPCS: 70450; 71010; 80048; 81001; 82948; 83036; 85025; 90471; 90732; G0009; G0378; G8987-GP; G8988-GP; J1815; J7030